=== PATIENT | female | born 1960 | race Caucasian/White ===

== ENCOUNTER → 2024-04-24 13:11 | Outpatient (REF) | payer MEDICARE, OTHER, SELFPAY | LOC: HWRAD 13:11 | PROVIDERS: ATTENDING PHYSICIAN Nurse Practitioner | DX: R31.29 Other microscopic hematuria (principal); R30.0 Dysuria | CPT/HCPCS: 76830; 76856 ==

== ENCOUNTER → 2024-06-06 08:18 | Outpatient (REF) | payer MEDICARE, OTHER, SELFPAY | LOC: SDSPAT 08:18 | PROVIDERS: ATTENDING PHYSICIAN Obstetrics & Gynecology Gynecologic Oncology; FAMILY PHYSICIAN Nurse Practitioner | DX: C54.1 Malignant neoplasm of endometrium (principal) | CPT/HCPCS: 36415; 86850; 86900; 86901 ==

== ENCOUNTER 2024-06-10 06:46 | Day surgery (SDC) | payer MEDICARE, OTHER, SELFPAY ==
[2024-06-06 13:46] VITALS: BMI 29.6
--- NOTE | 2024-06-08 16:24 | W.CON.GYNONC ---
Chief Complaint
-
Endometrial Cancer
History of Present Illness
64�year�old G0 white woman menopausal since age 49 referred to me by Dr. Llamas for management of endometrial cancer.
Patient had initially reported urinary frequency and blood in the urine, diagnosed with UTI but urine culture was negative. She
continued to have pinkish discharge on her toilet paper and ultrasound of pelvis was performed.
Pelvic ultrasound at [facility] April 24, 2024 shows uterus 5 x 2 x 2.8 cm, endometrium is 7 mm but heterogeneous.
Ovaries were not identified bilaterally there was no free fluid in the cul�de�sac.
Pap smear May 02, 2024 is satisfactory and negative for Intraepithelial lesion or malignancy.
Patient did have an endometrial biopsy May 02, specimen was sent to [facility], diagnosis was endometrioid carcinoma
grade 1�2 with squamous differentiation. Mismatch repair proteins were examined and they were expressed
Past medical history significant for migraine, anxiety, depression, hypothyroidism , history of shingles and personal history of colon
cancer (right hemicolectomy)
Oncology history: Patient had open right hemicolectomy, had stage II disease, she received chemotherapy and was discharged
from medical oncology.
Past surgical history significant for open Right colectomy, Status post left total hip replacement 2021
Medications include Synthroid, Prozac, Wellbutrin, Imitrex as needed
Family history significant for father with esophageal cancer, paternal grandfather with colon cancer, mother with CVA
Screening studies: Mammogram done within the last year, patient had a colonoscopy [address] Xie and GI
Social history she works in [employer] at a [employer], has exposure to lead
Allergies
No Known Drug Allergies
Medications
bupropion HCl XL 150 mg 24 hr tablet, extended release 1 p.o. twice a day (BID)
fluoxetine 20 mg tablet 1 p.o. twice a day (BID)
levothyroxine 150 mcg tablet 1 p.o. q. day
sumatriptan 100 mg tablet prn
Social�History Patient�denies�ever�using�tobacco. Social�use�of�alcohol. Denies�any�illicit�drug�use. 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
Marital�Status:�Patient�is� Gynecological�History Age�at�menopause:�49�years.
Family�Medical�History P�GF�colon�ca F�esophageal�ca
Medical History
Allergies
Allergies reflect when allergies were last updated in [employer].
Physical Exam
Physical Exam
External normal labia, urethra, anus.
Vagina: Normal mucosa. atrophic
Cervix: normal appearance, no discharge.
Uterus: normal size. mobile, normal parametria
Adnexa: No pelvic mass.
RVE: no masses or nodularity
General: Well developed, well nourished patient. In no acute distress.
Neck: No thyromegaly. No cervical lymphadenopathy.
Lungs: Clear to auscultation. Good air movement bilaterally.
Cardiac: Regular rate. Regular rhythm. No murmurs appreciated.
Right Breast: No masses or dimpling. No nipple discharge.
Left Breast: No masses or dimpling. No nipple discharge.
Abdomen: Abdomen is soft. Non�tender to palpation. Non�distended.
Extremities: No edema.
Jyothi Millan, 1960 Page 2 of 4
Hematologic/Lymphatic: No palpable lymphadenopathy.
Musculoskeletal: Normal range of motion. Strength and Tone are normal.
Skin:Non�jaundiced. No petechia. No purpura.
Neurologic: Speech is fluent. Normal gait and station. Cranial nerves intact.
Results
-
Comp. Metabolic Panel (14)�-FinalOrdered by:�Angely Arzola Source:�Blood
Glucose 112High mg/dL 70-99 [facility]
BUN 17 mg/dL 8-27 [facility]
Creat 1.08High mg/dL 0.57-1.00 [facility]
eGFR 57Low mL/min/1.73 >59 [facility]
BUN Creat Ratio 16 12-28 [facility]
Sodium 139 mmol/L 134-144 [facility]
Potassium 4.4 mmol/L 3.5-5.2 [facility]
Chloride 104 mmol/L 96-106 [facility]
CO2 20 mmol/L 20-29 [facility]
Calcium 9.2 mg/dL 8.7-10.3 [facility]
Total Protein 6.9 g/dL 6.0-8.5 [facility]
Albumin 4.3 g/dL 3.9-4.9 [facility]
Globulin 2.6 g/dL 1.5-4.5 [facility]
Total Bili 0.3 mg/dL 0.0-1.2 [facility]
Alk Phos 78 IU/L 44-121 [facility]
AST 25 IU/L 0-40 [facility]
ALT 17 IU/L 0-32 [facility]
Iron and TIBC�-FinalOrdered by:�Angely Arzola Source:�Blood
Iron Bind.Cap.(TIBC) 365 ug/dL 250-450 [facility]
UIBC 304 ug/dL 118-369 [facility]
IRON 61 ug/dL 27-139 [facility]
Iron Sat Percent 17 % 15-55 [facility]
Vitamin B12 and Folate�-FinalOrdered by:�Angely Arzola Source:�Blood
B12 449 pg/mL 232-1245 [facility]
Folate (Folic Acid), Serum 7.4 ng/mL >3.0 [facility]
A�serum�folate�concentration�of�less�than�3.1�ng/mL�is
considered�to�represent�clinical�deficiency.
Prothrombin Time (PT)�-FinalOrdered by:�Angely Arzola Source:�Blood
INR 1.0 0.9-1.2 [facility]
���������������Reference�interval�is�for�non-anticoagulated�patients.
��������������������������������������������������������������������.
���������������Suggested�INR�therapeutic�range�for�Vitamin�K
���������������antagonist�therapy:
������������������Standard�Dose�(moderate�intensity
���������������������������������therapeutic�range):�������2.0�-�3.0
������������������Higher�intensity�therapeutic�range�������2.5�-�3.5
ProTime 10.5 sec 9.1-12.0 [facility]
CEA�-FinalOrdered by:�Angely Arzola Source:�Blood
CEA 2.7 ng/mL 0.0-4.7 [facility]
��������������������������������������������Nonsmokers����������<3.9
��������������������������������������������Smokers�������������<5.6
��������������������������������������������������������������������.
���������������[facility]�Electrochemiluminescence�Immunoassay
���������������(ECLIA)
��������������������������������������������������������������������.
���������������Values�obtained�with�different�assay�methods�or�kits
���������������cannot�be�used�interchangeably.��Results�cannot�be
���������������interpreted�as�absolute�evidence�of�the�presence�or
���������������absence�of�malignant�disease.
Cancer Antigen (CA) 125�-FinalOrdered by:�Angely Arzola Source:�Blood
CA125 22.1 U/mL 0.0-38.1 [facility]�Electrochemiluminescence�Immunoassay�(ECLIA)
���������������������������������������������������������������������.
Values�obtained�with�different�assay�methods�or�kits�cannot�be
used�interchangeably.��Results�cannot�be�interpreted�as�absolute
evidence�of�the�presence�or�absence�of�malignant�disease.
PTT, Activated�-FinalOrdered by:�Angely Arzola Source:�Blood
aPTT 25 sec 24-33 [facility]
This�test�has�not�been�validated�for�monitoring�unfractionated�heparin
therapy.�aPTT-based�therapeutic�ranges�for�unfractionated�heparin
therapy�have�not�been�established.�For�general�guidelines�on
Heparin�monitoring,�refer�to�the�[facility]�Directory�of�Services.
TSH reflex to T4F�-FinalOrdered by:�Angely Arzola Source:�Blood
TSH 0.741 uIU/mL 0.450-4.500 [facility]
Ferritin�-FinalOrdered by:�Angely Arzola Source:�Blood
Ferritin 35 ng/mL 15-150 [facility]
[place] [address]
Patient: Jyothi Millan MR#: [id number]
: 1960 Age: 64 Sex: F Visit Number: [id number]
Admit Date: 06/06/24 Patient
Adm Doctor: Anibal Byers MD Ordered By: Anibal Byers MD
Loc: [facility] Report #: [id number]
[address] [place] [address]
[place] [address]
Study #: [id number]

Category: CAT Scan Date of Service: 06/06/24
Study Performed: CT chest abd pelvis w IV con
REPORT STATUS: Signed
History: Uterine cancer. Colon cancer. Evaluate for metastatic disease.
CT of Chest and Abdomen and Pelvis is performed with IV and oral contrast.
CT dose optimization: One or more of the following dose optimization techniques were used: Automated
exposure control and/or adjustment of the mA and/or kV according to patient size and/or age and/or
specific protocol, and/or iterative reconstruction.
Comparison: None
CHEST:
The lungs: 4 mm nodule left lower lobe image 124 series 4. Minimal linear atelectasis at the bases.
Mediastinum and Sun: No mass or lymphadenopathy
Pleural space and pleura: No pleural effusion. No pneumothorax.
Bones: No suspicious finding.
ABDOMEN AND PELVIS:
Liver: 12 mm fluid hypodensity of left lobe lateral segment image 15 series 8 indicating cyst. No
suspicious enhancement or focal suspicious lesion.
Spleen: within normal limits
Pancreas: within normal limits
Adrenals: within normal limits
Kidneys: within normal limits. No hydroureteronephrosis.
Gallbladder: Within normal CT limits
Peritoneum and mesentery: No free fluid or focal collection or pneumoperitoneum
Bowel: normal caliber
Moderate to marked stool indicating constipation.
Appendix: No evidence of abnormal appendix.
Aorta: normal caliber
Lymph nodes:No lymphadenopathy.
Bladder: smooth in contour
CT appearance of the uterus and ovaries is within normal limits. No pelvic mass.
Bones: No acute process.
IMPRESSION:
1. 4 mm left lower lobe nodule. Otherwise clear lungs.
2. 12 mm left hepatic cyst.
3. No ascites or abdominal or pelvic adenopathy.
Dictated By: Ap Bowers MD on 06/06/24 at 1610
Impression / Plan
-
This is a 64�year�old woman with new diagnosis of endometrial cancer. Patient has a prior history of right colon cancer and is status
post open right colectomy and chemotherapy for stage II disease. I discussed with the patient presentation incidence as well as
management of endometrial cancer. We discussed that typical risk factors include obesity, hypertension and diabetes. She does
have some overweight but has normal cholesterol. It is possible that she may have Perez syndrome even though screening of
mismatch repair proteins on the endometrial biopsy specimen did not reveal any high suspicion for Perez syndrome. My
recommendations are as follows
#[address] chest abdomen and pelvis
#2 obtain labs including CMP CBC CA125 CEA
#3 we will obtain labs and send for germline testing using [employer] COLARIS panel with a reflex to myriad my risk
#4 the patient is due for a colonoscopy, previous colonoscopies did not reveal any evidence of polyps. She has the option to wait to
schedule her definitive treatment of endometrial cancer until after her colonoscopy or to proceed with surgery now. She wishes to
have her surgery now and will proceed with colonoscopy sometimes this year.
#5 I will schedule surgery at [facility] with the intent to perform diagnostic laparoscopy through a left upper quadrant
approach, lysis of adhesions as I anticipate she will have some adhesions secondary to open right colectomy, at that time we will
proceed with robotic assisted total laparoscopic hysterectomy bilateral salpingo�oophorectomy staging including removal of sentinel
lymph nodes after injection of ICG dye for mapping and identification of sentinel lymph nodes.
Risks of surgery including infection bleeding injury to adjacent organs DVT pulmonary embolism and cardiovascular complications
were discussed with the patient in detail.
She understands that after surgery she will return back to the office to review the pathology results and discuss if any additional
treatments are indicated.
She understands that she may be recommended to undergo observation versus radiation or if she has identified to have high risk
disease she may require combination of chemotherapy and radiation.
#6 patient is asked to visit with her primary care physician for medical clearance prior to surgery.
#7 given the fact that there is a risk of bowel injury as well as need for lysis of adhesions intraoperatively MiraLAX bowel prep is
recommended prior to surgery. She does understand that if the case of severe adhesions surgery may need to be converted to an
open approach.
#8 I have discussed the recovery process from the surgery in detail with the patient and answered all her questions to the best of
my ability.
[2024-06-10] VITALS (9 sets, daily range): BP systolic 123–140; BP diastolic 64–83; BMI 29.6
[2024-06-10] MEDS: NORMOSOL-R/PLASMALYTE-A 1000 IV (12:40)
[2024-06-10] MEDS: TYLENOL 1000 MG PO (12:52)
[2024-06-10] MEDS: CELEBREX 200 MG PO (12:52)
[2024-06-10] MEDS: NEURONTIN 300 MG PO (12:53)
[2024-06-10] MEDS: HEPARIN 5000 UNITS SC (15:37)
--- NOTE | 2024-06-10 18:12 | OR.RPT ---
Operative Report
Operative Report
Date of procedure: June 10, 2024
Preoperative diagnosis: Endometrial cancer, prior history of colon cancer status post open right hemicolectomy
Postoperative diagnosis: Same, and pelvic and intra-abdominal adhesions
Anesthesia: General Endotracheal intubation
Procedure:
Robotic assisted total laparoscopic hysterectomy, bilateral salpingo-oophorectomy, pelvic washings
Robotic assisted laparoscopic bilateral pelvic sentinel lymphadenectomy
Robotic assisted laparoscopic extensive lysis of adhesions
Injection of cervix with ICG dye, bilateral, for mapping and identification of sentinel lymph node
Transverse abdominis plane block
Surgeon: Anibal Byers
Assist: Noe Jarrell PA-C
AARON Rico
The assistance of Claude Jarrell was required due to the complexity of the procedure. During the procedure Gomez Jarrell assisted with retraction, resection, and closure of the wound.
Estimated blood loss: 50 cc
Complications: None
Specimen: Uterus and cervix with bilateral tubes and ovaries, right and left external iliac sentinel lymph node, left external iliac sentinel lymph node #2, pelvic washings
Procedure in detail: This patient was taken to the operating room, for definitive treatment of endometrial cancer. Upon arrival to the operating room, she was placed in supine position. General anesthesia was administered and she was intubated
without any difficulty. Appropriate IVs were placed. Arms were wrapped with foam and tape placed along the patient's side. The patient was positioned in dorsolithotomy position using yellowfin stirrups. She was prepped on the abdomen perineum
and vagina and under sterile conditions Russell catheter was placed. The patient was prepped and draped. Timeout procedure was carried out, she had received 2 g of Ancef as well as Flagyl and had received DVT prophylaxis with heparin preoperatively.
We went ahead and placed the uterine manipulator with 2.5 cm ABELINO ring around the cervix, the cervical canal was dilated. Just prior to that the cervix was injected with ICG dye at 3 and 9:00 positions at 5 and 10 mm stations.. Veress needle was
inserted just below left subcostal margin and insufflation with CO2 gas was performed up to pressure of 15 mmHg. 8 mm robotic port was introduced in the left upper quadrant using Visiport technique under direct visualization and we noted that upon
entry we could see the left upper quadrant diaphragm and stomach and spleen and falciform ligament there was a window that we were able to get through to the right side and see the right lobe of liver which was normal under direct visualization
right sided ports were placed in upper quadrant and lateral abdomen. We used those 2 ports to take down sharply adhesions between omentum and anterior abdominal wall and this allowed us to place our midline port for camera and then additional lysis
of adhesion was done taking down the omentum in the left along the left gutter and the left lateral port was placed here. Patient was placed in 28 degree Trendelenburg. Robotic system was docked. We went ahead and started the robotic procedure
with 30 degree up camera, we took down the entire omental adhesions to the anterior abdominal wall in order to free this up this part of the procedure was 45 minutes. We did not injure any of the loops of the bowel and they were kept out of harm's
way once this was completed uterus was elevated washings were collected in the posterior cul-de-sac. Adhesions between sigmoid colon and left adnexa were taken down. Following this right and left round ligaments were sealed and divided anterior
and posterior leaves of the broad ligament were dissected open. Both IP ligaments were visualized, the course of the ureters were visualized both IP ligaments were isolated sealed 3 times and divided. Tubes and ovaries were left attached to the
uterus. Bladder flap was sharply developed and advanced below the cervicovaginal junction. Right and left uterine arteries were skeletonized. We used the near infrared lighting to expose the retroperitoneal spaces. External iliac lymph nodes
were removed on the left side along the external iliac vein and external iliac artery, and they were labeled as #2 and #1 respectively. On the right side there was 1 large external iliac artery lymph node which was removed and submitted separately.
We sealed and divided uterine vessels, we sealed and divided paracervical tissue. We sealed and divided both uterosacral ligaments. Circumferential incision was made around the ABELINO ring until the specimen was detached. Uterus and cervix with
bilateral tubes and ovaries were removed and submitted to pathology. Vaginal cuff was closed with 0 Vicryl suture ligature in a [id number] fashion at both apices incorporating uterosacral ligaments. Next V-Loc suture was used to close the
cuff starting from right to the left side and back to the right side in 2 layers. All pedicles were examined and excellent hemostasis was present. We went ahead and undocked the robotic system and released the pneumoperitoneum. Vagina was
examined there was no lacerations. Russell catheter was removed. The incisions of the port sites were closed with 4-0 Monocryl in a subcuticular fashion. Bupivacaine was injected in all incisions. Tap block was performed just prior to undocking
the robotic system under direct visualization with combination of ropivacaine and saline. Counts of laps instruments and needle was correct x 2. I was present and scrubbed for entire procedure as dictated above.
Disposition: To PACU, stable awake and extubated
[2024-06-10] MEDS: SUBLIMAZE 25 MCG IV ×2 (18:25→18:38)
== END 2024-06-10 19:50 | disposition home or self-care (01) ==
LOC: SDS 06:46
PROVIDERS: ATTENDING PHYSICIAN Obstetrics & Gynecology Gynecologic Oncology; FAMILY PHYSICIAN Nurse Practitioner
DX: C54.1 Malignant neoplasm of endometrium (principal); K66.0 Peritoneal adhesions (postprocedural) (postinfection)
CPT/HCPCS: 38571; 58571; 38900; 49329; S2900; 88307; 88309; 86900; 86901; 88112; 88342; 88360; C1776

== ENCOUNTER → 2024-09-27 09:27 | Outpatient (REF) | payer MEDICARE, OTHER, SELFPAY | LOC: RAD 09:27 | PROVIDERS: ATTENDING PHYSICIAN Hospitalist | DX: R91.1 Solitary pulmonary nodule (principal) | CPT/HCPCS: 71250 ==

== ENCOUNTER → 2024-11-18 11:51 | Outpatient (REF) | payer MEDICARE, OTHER, SELFPAY | LOC: HWWDC 11:51 | PROVIDERS: ATTENDING PHYSICIAN Hospitalist | DX: Z12.31 Encounter for screening mammogram for malignant neoplasm of breast (principal) | CPT/HCPCS: 77063; 77067 ==